=== PATIENT | female | born 1955 | race Hispanic/Latino ===

== ENCOUNTER 2022-02-23 14:42 | Emergency (ER) | payer OTHER ==
[2022-02-23 16:04] LABS: APPEARANCE,URINE CLEAR (CLEAR); BILIRUBIN,URINE NEGATIVE (NEGATIVE); COLOR,URINE YELLOW (YELLOW); GLUCOSE, URINE (UA) NEGATIVE (NEGATIVE); KETONES,URINE 5 mg/dL (NEGATIVE); LEUKOCYTE ESTERASE ,URINE MODERATE Leu/uL (NEGATIVE); NITRATE,URINE POSITIVE (NEGATIVE); OCCULT BLOOD,URINE LARGE (NEGATIVE); PH,URINE 6.5 (5.0-8.0); PROTEIN,URINE 100 mg/dL (NEGATIVE)
[2022-02-23 16:11] VITALS: BP 140/65
[2022-02-23 16:30] LABS: BACTERIA,URINE Many /HPF (None Seen)
[2022-02-23 16:31] LABS: SQUAMOUS EPITHELIAL CELL,UR Rare /HPF (0-2)
[2022-02-23] MEDS ORDERED: PHEN-847 PO (16:42)
[2022-02-23] MEDS ORDERED: LEVO-70 PO (16:42)
== END 2022-02-23 17:10 | disposition home or self-care (01) ==
LOC: EDH 14:42
DX: N39.0 Urinary tract infection, site not specified (principal); E11.9 Type 2 diabetes mellitus without complications; I10 Essential (primary) hypertension; Z79.899 Other long term (current) drug therapy; Z98.890 Other specified postprocedural states
CPT/HCPCS: 81001; 87077; 87088; 87186